=== PATIENT | female | born 1970 | race Caucasian/White ===

== ENCOUNTER → 2017-12-21 | Outpatient (CLI) | payer BC, OTHER ==
--- NOTE | 2017-12-21 14:00 | RADIOLOGY IMAGING REPORT ---
FACILITY: [facility] PATIENT NAME: YELENA MICHAUD : [id number] MR: [id number] V: [id number] EXAM DATE: [id number] ORDERING PHYSICIAN: FRED HAMM TECHNOLOGIST: Lynnette San PROCEDURE:BILATERAL DIGITAL SCREENING MAMMOGRAM WITH CAD ASSISTED INTERPRETATION & 3D TOMOSYNTHESIS COMPARISON:08/19/2014 INDICATIONS:SCREENING TECHNIQUE: This examination was reviewed with the aid of CAD. Breast tissue is heterogeneously dense. FINDINGS: There is no suspicious mass, calcification or architectural distortion. DIAGNOSTIC CATEGORY 1--NEGATIVE. RECOMMENDATIONS: ROUTINE YEARLY SCREENING MAMMOGRAM AND CLINICAL EVALUATION. IMPRESSION: BIRADS 1: Negative. No mammographic evidence for malignancy. Dictated by: Sunday Kidd M.D. on 12/21/2017 at 13:13 Transcribed by: DORA on 12/21/2017 at 13:42 Approved by: Sunday Kidd M.D. on 12/21/2017 at 13:59 [facility]
== END ==
LOC: MAMO 01:58
PROVIDERS: ATTEND Student in an Organized Health Care Education/Training Program
DX: Z12.31 Encounter for screening mammogram for malignant neoplasm of breast (principal)
CPT/HCPCS: 77063; 77067